=== PATIENT | male | born 1995 ===

== ENCOUNTER 2020-05-19 07:49 | Outpatient (CLI) | payer OTHER | END 2020-05-19 08:04 | disposition home or self-care (01) | LOC: TOM 07:49 | PROVIDERS: ATTEND Colon & Rectal Surgery | DX: K58.9 Irritable bowel syndrome, unspecified (principal) ==

== ENCOUNTER 2020-05-23 06:32 | Day surgery (SDC) | payer OTHER | END 2020-05-23 13:06 | disposition home or self-care (01) | LOC: AMB-ENDOS 06:32 | PROVIDERS: ATTEND Colon & Rectal Surgery | DX: K62.89 Other specified diseases of anus and rectum (principal); K64.1 Second degree hemorrhoids; Z20.828 Contact with and (suspected) exposure to other viral communicable diseases ==